=== PATIENT | female | born 1985 | race Two or more races ===

== ENCOUNTER 2024-11-07 04:23 | Emergency (ER) | payer MEDICAID, SELFPAY ==
[2024-11-07 04:23] VITALS: BP 140/85; PULSE 80; RESP 20; TEMP 36.8; O2SAT 99
[2024-11-07 04:24] VITALS: BMI 32.9
--- NOTE | 2024-11-07 04:39 | XR_ITS ---
Examination: CT abdomen and pelvis without contrast. Coronal 3-D reconstructions. Sagittal 2-D reconstructions. Date and time of exam:November 07, 2024 at 0533 hours INDICATIONS: Onset right-sided flank pain today CTDI: vol (mGy): 17.3 DLP: (mGycm): 1006 Technique: Axial images of the abdomen have been obtained, 3 mm slice thickness Intravenous contrast material has not been administered. Low dose protocols were performed. One or more of the following dose reduction techniques were used; automated exposure control, adjustment of the mA and/or KV according to patient size, use of iterative reconstruction technique. Findings: Diffuse fatty infiltration throughout the liver, no focal liver or splenic lesions AND gallbladder No pancreatic or adrenal mass Minimal right hydronephrosis secondary to 4 mm distal right ureteral vesicle junction calculus Aorta normal size Normal appendix No bowel obstruction 26 mm left ovarian probable follicular cyst No bladder calculi IMPRESSION: Minimal right hydronephrosis secondary to 4 mm ureterovesical junction calculus
[2024-11-07] MEDS: ONDANSETRON ODT 4 MG TABRAP PO (05:12)
[2024-11-07 05:14] LABS: Collection Type, Urine Clean Catch
[2024-11-07 05:18] LABS: HCG Qualitative,Urine Negative
[2024-11-07 05:20] LABS: Amorphous Crystals,Urine Present (Absent); Bacteria,Urine 1+; Bilirubin,Urine Negative (Negative); Blood,Urine 2+ (Negative); Color,Urine Yellow (Lt Yel-Yel); Glucose, Urine Negative (Negative); Ketones,Urine Negative (Negative); Leukocyte Esterase,Urine Positive (Negative); Nitrite,Urine Negative (Negative); PH,Urine 6.5 (5.0-7.0); Protein,Urine Trace (Neg - Trace); RBC,Urine 26 /hpf (0-3); Specific Gravity,Urine 1.022 (1.001-1.035); Squamous Epithelial Cell,Urine 4 /hpf (0-5); Urobilinogen,Urine Negative mg/dL (0.0-1.0); WBC,Urine 5 /hpf (0-5)
[2024-11-07 05:21] LABS: Clarity,Urine Turbid (Clear/Hazy); Culture Indicated,Urine Yes
[2024-11-07 05:30] LABS: Amphetamine/Methamp Scrn,U Negative (Negative); Barbiturate Screen,Urine Negative (Negative); Benzodiazepines Screen,Urine Negative (Negative); Benzoylecgonine Screen, Ur Negative (Negative); Fentanyl Screen,Urine Negative (Negative); Opiate Screen,Urine Negative (Negative); THC Screen,Urine Negative (Negative)
[2024-11-07 05:34] LABS: Basophils % (Auto) 0 % (0-2.5); Eosinophils # (Auto) 0.1 Thou/mm3 (0.0-0.5); Eosinophils % (Auto) 1 % (0-10); Hematocrit 38.5 % (36.0-46.0); Hemoglobin 12.9 g/dL (12.0-16.0); Immature Granulocytes % (Auto) 1 % (0-0); Immature Granulocytes Auto 0.05 Thou/mm3 (0.00-0.00); Lymphocytes % (Auto) 21 % (10-50); Mean Corpuscular HGB Conc 33.5 g/dl (31.0-37.0); Mean Corpuscular Hemoglobin 28.6 pg (25.0-35.0); Mean Corpuscular Volume 85 fL (80-100); Monocytes # (Auto) 0.7 Thou/mm3 (0.0-0.8); Monocytes % (Auto) 7 % (0-12); Neutrophils # (Auto) 6.8 Thou/mm3 (1.8-7.7); Neutrophils % (Auto) 70 % (37-80); Nucleated Red Blood Cell % 0 /100 WBC (0); Platelet Count 108 Thou/mm3 (140-440); RDW Standard Deviation 41.7 fL (36.4-46.3); Red Blood Count 4.51 Miln/mm3 (4.00-5.20); White Blood Count 9.7 Thou/mm3 (3.6-11.0)
--- NOTE | 2024-11-07 05:47 | PD.EDRME ---
Rapid Medical Screening Exam RME Arrival date/time: 11/07/24 04:23 39F with history of cholecystectomy presents to ED with 1 hour of sudden R lower flank pain and N/V. Patient denies dysuria, but does have the urge to urinate. Chief Complaint: Back Pain/Injury Time Seen by Provider: 11/07/24 04:38 Vital signs: Vital Signs Temperature 98.2 F 11/07/24 04:23 Pulse Rate 80 11/07/24 04:23 Respiratory Rate 20 11/07/24 04:23 Blood Pressure 140/85 H 11/07/24 04:23 Pulse Oximetry (%) 99 11/07/24 04:23 Oxygen Delivery Method Room Air 11/07/24 04:23
[2024-11-07 05:51] LABS: Alanine Aminotransferase 66 U/L (10-49); Albumin, Serum 4.1 gm/dL (3.5-5.0); Albumin/Globulin Ratio 1.5 (1.2-2.2); Alkaline Phosphatase 109 U/L (46-116); Anion Gap 11 (7-16); Aspartate Amino Transferase 59 U/L (0-34); BUN/Creatinine Ratio 15 Ratio (12-20); Bilirubin,Total 0.7 mg/dL (0.3-1.2); Blood Urea Nitrogen 12 mg/dL (9-23); Calcium 8.6 mg/dL (8.3-10.6); Calcium (Corrected) 8.6 mg/dL (8.5-10.1); Carbon Dioxide 23.5 mMol/L (20.0-31.0); Chloride 106 mMol/L (98-107); Creatinine (Component) 0.8 mg/dL (0.6-1.3); Estimated Creatinine Clearance 94.4 mL/min (>60); Globulin 2.8 gm/dL (2.3-3.5); Glucose 200 mg/dL (74-106); Lipase 36 U/L (12-53); Osmolality,Calculated 285 (275-295); Potassium 3.7 mMol/L (3.4-5.1); Sodium 140 mMol/L (136-145); Total Protein 6.9 gm/dL (5.7-8.2); eGFR > 60 See Note
[2024-11-07] MEDS: KETOROLAC INJ 60 MG/2 ML VIAL IM (05:58)
--- NOTE | 2024-11-07 05:59 | PRELIM_ITS ---
CT scan of the abdomen and pelvis without intravenous contrast (axial sections with sagittal and coronal reformats) November 07, 2024 0533 hours Clinical History: R flank pain No prior study is available for comparison. Findings: The lung bases are clear. The gallbladder is surgically absent. There is a 2 mm obstructing calculus at the right ureterovesical junction (coronal images 117/195) causing mild hydroureteronephrosis and periureteric/perinephric fat stranding. The liver, pancreas, spleen, left kidney and adrenals are unremarkable on this noncontrast study. No evidence of bowel obstruction. The appendix is within normal limits (images [id number]). There is no mesenteric or retroperitoneal adenopathy. The urinary bladder is incompletely distended at the time of the examination and appears mildly thick-walled. There is no free fluid or free air. The uterus is unremarkable. There is a left ovarian cyst, measuring 3.5 cm. The osseous structures are unremarkable. Impression: 2 mm obstructing calculus at the right ureterovesical junction causing mild hydroureteronephrosis. Incompletely distended and mildly thick-walled urinary bladder. In the appropriate clinical setting, the possiblity of cystitis cannot be excluded. Report Electronically Signed By: Adan Mcdaniel 11/07/2024 5:58:48 AM [EST]
[2024-11-07 08:00] VITALS: BP 134/86; PULSE 84; RESP 16; TEMP 36.8; O2SAT 98
[2024-11-07 08:01] VITALS: BMI 33.5
--- NOTE | 2024-11-07 09:07 | EDNOTE_ITS ---
ED Back Injury Pain RME/HPI General Chief Complaint: Back Pain/Injury Stated Complaint: RIGHT FLANK PAIN AND VOMITING Time Seen by Provider: 11/07/24 04:38 Arrival date/time: 11/07/24 04:23 RME / HPI RME / HPI Narrative: 11/07/24 04:23 39F with history of cholecystectomy presents to ED with 1 hour of sudden R lower flank pain and N/V. Patient denies dysuria, but does have the urge to urinate. DR. WHARTON MAIN ED EVALUATION 39 year old female with no stated chronic medical history presents to the ED for evaluation of right flank pain that woke her from sleep at 03:30 AM today. Described as colicky in sensation and rating as severe. Accompanied by nausea and vomiting. Denies any history of similar pain. Denies fevers, chills, sweats. Denies chest pain, cough, shortness of breath. Denies diarrhea, constipation. Denies dysuria, urinary frequency and urgency. Related Data Previous Rx's ?Medication ?Instructions ?Recorded cephalexin 500 mg capsule 500 mg PO TID #21 caps 11/07 ibuprofen 600 mg tablet 600 mg PO Q6H PRN pain #30 t abs 11/07/24 ibuprofen 600 mg tablet 600 mg PO Q6H PRN pain #30 t abs 11/07/24 tamsulosin 0.4 mg capsule 0.4 mg PO QDAY #14 caps 10/23 12/17 tamsulosin 0.4 mg capsule 0.4 mg PO QDAY #14 caps 10/23 12/17 Allergies Allergy/AdvReac Type Severity Reaction Status Date / Time No Known Allergies Allergy Verified 11/07/24 04:23 Review of Systems Review of Systems Narrative Review of Systems: GEN: No fever, no chills EYES: No discharge, no visual changes, no pain HEENT: No ear pain, no congestion, no sore throat PULM: No shortness of breath, no cough, no congestion CV: No chest pain, no palpitations GI: + nausea, + vomiting, no diarrhea, no constipation : No frequency, no urgency, no dysuria MUSC/SKEL: No joint pain, +right flank/back pain SKIN: No rash NEURO: No weakness, no headache Past Medical History Past Medical History GASTROINTESTINAL: Positive Gastrointestinal Disorders, Hepatitis (Hep A) and Gall Bladder Disease (2019) REPRODUCTIVE: Positive Previous Pregnancies () MUSCULOSKELETAL: Positive Carpal Tunnel Syndrome (right) Family History FAMILY HISTORY: Positive Family Cardiac Disorders, Family Cancer (pt's mother thyroid cancer) and Family Surgery Surgical History SURGICAL: Positive Tubal Ligation and Section (x2) Social History SMOKING STATUS: Never smoker ED Exam Narrative Physical exam: GENERAL APPEARANCE: alert and oriented x 4, well-developed, well-nourished, no acute distress HEENT: Normocephalic, atraumatic; pupils equal, round, reactive to light; EOMI; mucous membranes pink, moist; oropharynx clear NECK: Supple LUNGS: CTABL; no wheezes, no rales, no rhonchi HEART: Regular rate, regular rhythm; normal S1, S2; no murmurs ABDOMEN: non distended; normal BS; soft, no tenderness, no guarding, no rebound; no masses, no organomegaly, no hernia BACK: no CVA tenderness EXTREMITIES: atraumatic; no edema NEUROLOGIC: awake; alert and oriented x4; cranial nerves II-XII grossly intact; no focal sensory or motor deficits PSYCHIATRIC: appropriate mood and affect SKIN: warm, dry, normal color; no rashes Course Quality Measures none Orders Category Date Time Status CT abdomen pelvis wo con Stat Exams 11/07/24 04:39 Completed CBC Stat Lab 11/07/24 05:19 Completed CMP [Comprehensive Metabolic Panel] Stat Lab 11/07/24 05:19 Completed Drug Screen,Urine Stat Lab 11/07/24 05:06 Completed HCG Qualitative,Urine Stat Lab 11/07/24 05:06 Completed Lipase Stat Lab 11/07/24 05:19 Completed Urinalysis, C/S if Indicated Stat Lab 11/07/24 05:06 Completed Urine Culture Stat Lab 11/07/24 05:06 Received HYDROcodone*/APAP 5/325 [[place] 5/325] Med 11/07/24 09:00 Discontinued 1 tab PO X1 ONE Ketorolac Inj [Toradol Inj] Med 11/07/24 04:39 Discontinued 60 mg IM X1 ONE Ondansetron Odt [Zofran Odt] Med 11/07/24 04:39 Discontinued 4 mg PO X1 ONE Tamsulosin HCl [Flomax] Med 11/07/24 08:59 Discontinued 0.4 mg PO X1 ONE cephALEXin [Keflex] Med 11/07/24 08:59 Discontinued 500 mg PO X1 ONE Vital Signs Vital signs: Vital Signs Temperature 98.2 F 11/07/24 04:23 Pulse Rate 80 11/07/24 04:23 Respiratory Rate 20 11/07/24 04:23 Blood Pressure 140/85 H 11/07/24 04:23 Pulse Oximetry (%) 99 11/07/24 04:23 Oxygen Delivery Method Room Air 11/07/24 04:23 Pulse ox is 99% on room air which is adequate. Back Pain / Injury MDM Narrative MDM Narrative:: Marii Craig am scribing for and in the presence of Dr. Wharton. 0900: At this time patient reports no pain and improved after receiving Toradol IM. Patient remains clinically stable throughout the emergency department visit. We reviewed all the results, analysis, and treatment plans. Patient is amenable to discharge. Strict return precautions were outlined. Patient was discharged in stable condition. Patient data External records reviewed:: [facility] previous records (I reviewed ED visit on 04/14/2022 ) Clinical information provided by:: patient Social determinants that could affect healthcare access:: none Patient has the following chronic illnesses:: No chronic medical hx reported surgical hx includes cholecystectomy How is presenting disease/condition affected by chronic disease/condition?: no chronic disease Evaluation data The following diagnostics were reviewed and interpreted by me:: lab results and radiology exam(s) Lab and/or radiology exams considered but not ordered:: None Interpretation Summary: Ordering Physician: Yoni Salcido PA-C Date of Service: 11/07/24 Procedure(s): CT abdomen pelvis wo [facility] Accession Number(s): [id number] cc: Chente Stockton MD; Edu Herrera MD; Yoni Salcido PA-C~ Examination: CT abdomen and pelvis without contrast. Coronal 3-D reconstructions. Sagittal 2-D reconstructions. Date and time of exam:November 07, 2024 at 0533 hours INDICATIONS: Onset right-sided flank pain today CTDI: vol (mGy): 17.3 DLP: (mGycm): 1006 Technique: Axial images of the abdomen have been obtained, 3 mm slice thickness Intravenous contrast material has not been administered. Low dose protocols were performed. One or more of the following dose reduction techniques were used; automated exposure control, adjustment of the mA and/or KV according to patient size, use of iterative reconstruction technique. Findings: Diffuse fatty infiltration throughout the liver, no focal liver or splenic lesions AND gallbladder No pancreatic or adrenal mass Minimal right hydronephrosis secondary to 4 mm distal right ureteral vesicle junction calculus Aorta normal size Normal appendix No bowel obstruction 26 mm left ovarian probable follicular cyst No bladder calculi IMPRESSION: Minimal right hydronephrosis secondary to 4 mm ureterovesical junction calculus Dictated By: Edu Herrera MD Signed By: <Electronically signed by Edu Herrera MD in OV> 11/07/24 0735 Medications / Prescriptions Medications or Prescriptions considered but not ordered:: None Medication administrations:: Medication Administration History Discontinued Medications Hydrocodone Bitart/Acetaminophen (Hydrocodone/[place] 5/325 Tablet) 1 tab PO X1 ONE Stop: 11/07/24 09:01 Last Admin: 11/07/24 09:11 Dose: 1 tab Documented By: CAMERON Cephalexin HCl (Cephalexin 250 Mg Capsule) 500 mg PO X1 ONE Stop: 11/07/24 09:00 Last Admin: 11/07/24 09:10 Dose: 500 mg Documented By: CAMERON Ketorolac Tromethamine (Ketorolac Inj 60 Mg/2 Ml Vial) 60 mg IM X1 ONE Stop: 11/07/24 04:40 Last Admin: 11/07/24 05:58 Dose: 60 mg Documented By: JACQUE Ondansetron HCl (Ondansetron Odt 4 Mg Tabrap) 4 mg PO X1 ONE; Protocol Stop: 11/07/24 04:40 Last Admin: 11/07/24 05:12 Dose: 4 mg Documented By: JACQUE Tamsulosin HCl (Tamsulosin Hcl 0.4 Mg Capsule) 0.4 mg PO X1 ONE Stop: 11/07/24 09:00 Last Admin: 11/07/24 09:11 Dose: 0.4 mg Documented By: See above Consultations Consultation(s) initiated? (list below): No Diagnosis Differential diagnosis back pain/injury: lumbar radiculopathy, sciatica, strain of lumbar region, renal colic, pyelonephritis and other (kidney stone ) Most likely diagnosis given after review of the tests above:: Right ureteral stone Renal colic on rigth side Admission Indicated Admission indicated?: not indicated Admission Request Was there a request for admission?: No Disposition Plan Disposition Plan: Discharge Discharge Attestation Discharge Attestation: The patient and all family members were given an opportunity to ask questions and understood the discharge instructions. Discharge instructions specifically effects, indications for sooner follow up or return to the emergency department, and the expected course of current diagnosis. Patient condition: Stable Discharge Plan Plan Patient Disposition: HOME (Self Care) Prescriptions/Referrals Prescriptions/Med Rec: New ibuprofen 600 mg tablet 600 mg PO Q6H PRN (Reason: pain) Qty: 30 0RF tamsulosin 0.4 mg capsule 0.4 mg PO QDAY Qty: 14 0RF cephalexin 500 mg capsule 500 mg PO TID Qty: 21 0RF tamsulosin 0.4 mg capsule 0.4 mg PO QDAY Qty: 14 0RF ibuprofen 600 mg tablet 600 mg PO Q6H PRN (Reason: pain) Qty: 30 0RF Referrals: Chente Stockton MD [Primary Care Provider] - In 1 week Problem List Clinical Impression: Right ureteral stone, Renal colic on right side Patient/Caregiver Discharge Instructions Education Materials: ED Kidney Stone w/ Colic Print Language: Slovenian Stand Alone Forms: Claire Award Info., Patient Portal Info Letter
[2024-11-07] MEDS: cephALEXin 250 MG CAPSULE 500 MG PO (09:10)
[2024-11-07 09:11] VITALS: BP 117/79; PULSE 81; RESP 15; TEMP 36.9; O2SAT 97
[2024-11-07] MEDS: TAMSULOSIN HCL 0.4 MG CAPSULE PO (09:11)
[2024-11-07] MEDS: HYDROcodone/APAP 5/325 TABLET 1 TAB PO (09:11)
== END 2024-11-07 09:30 | disposition home or self-care (01) ==
PROVIDERS: Physician Assistant; Emergency Provider Emergency Medicine; PCP Student in an Organized Health Care Education/Training Program
DX: N13.2 Hydronephrosis with renal and ureteral calculous obstruction (principal)
CPT/HCPCS: 36415; 74176; 80053; 80307; 81001; 81025; 83690; 85025; 87077; 87086; 87186; 96372; 99284; J1885; Q0162; A9270